=== PATIENT | female | born 1945 | race Caucasian/White ===

== ENCOUNTER 2018-07-15 19:28 | Emergency (ER) | payer MEDICARE, MEDICAID, SELFPAY ==
[2018-07-15] VITALS (7 sets, daily range): BP systolic 119–139; BP diastolic 71–82; PULSE 57–82; RESP 12–20; TEMP 36.4; O2SAT 94–99; BMI 28.8
--- NOTE | 2018-07-15 19:34 | ED_ITS ---
HPI - Dizziness General Chief Complaint: Dizziness Stated Complaint: Dizzy / Nausea Time Seen by Provider: 07/15/18 19:33 Source: patient and EMS Mode of arrival: EMS History of Present Illness HPI Narrative: patient is a 73-year-old female who presents with dizziness and nausea. She had a recent CVA at [facility] and now resided and 1 rehab. She said she got her night medications including glucosamine which immediately made her dizzy and nauseated. She has ringing in her ears which is not abnormal for her. She says it feels better when her eyes are closed but she is able to open them denies blurry vision or double vision. Related Data Previous Rx's Medication Instructions Recorded sulfamethoxazole-trimethoprim 1 tab PO BID 4 Days #8 tab 07/16/18 [Bactrim DS] Allergies Allergy/AdvReac Type Severity Reaction Status Date / Time codeine Allergy Hives Verified 07/15/18 20:24 Review of Systems Review of Systems All systems reviewed & are unremarkable except as noted in HPI and below Constitutional Denies chills, Denies fatigue and Denies fever(s) Eyes Denies blind spots, Denies blurry vision and Denies diplopia ENT Ears, Nose, Mouth, and Throat: Denies change in voice, Denies neck pain and Denies sore throat Cardiovascular Denies chest pain, Denies irregular heart rhythm, Denies lightheadedness, Denies palpitations, Denies dyspnea, Denies dyspnea on exertion and Denies orthopnea Respiratory Denies cough, Denies dyspnea, Denies dyspnea on exertion and Denies wheezing Gastrointestinal Gastrointestinal: Denies abdominal pain, Denies change in bowel habits, Denies diarrhea, Denies nausea and Denies vomiting Musculoskeletal Denies deformity and Denies neck pain Integumentary/Breasts Denies pruritus, Denies erythema, Denies rash and Denies wounds Neurologic Reports as per HPI Endocrine Denies fatigue and Denies palpitations Allergic/Immunologic Denies wheezing [facility] Social History Smoking Status: Never smoker Exam Initial Vital Signs Initial Vital Signs: Vital Signs Temperature 97.5 F L 07/15/18 19:37 Pulse Rate 71 07/15/18 19:37 Respiratory Rate 20 07/15/18 19:37 Blood Pressure 132/82 07/15/18 19:37 Pulse Oximetry 98 07/15/18 19:37 Const General: cooperative and acute distress ( Closing eyes appears uncomfortable) Nutritional Appearance: average body habitus Orientation: alert, awake and oriented x3 HENMT Head: normal to inspection and normocephalic Face and sinus: normal facial exam Eyes General: appearance normal, both eyes and all related structures Neck Neck: normal visual inspection, full ROM and no meningeal signs Chest Chest: normal inspection of the chest Resp Effort & Inspection: normal respiratory effort, able to speak in complete sentences, no respiratory distress and no use of accessory muscles Auscultation: clear to auscultation bilaterally, no rales, no rhonchi and no wheezes Cardio Rate: regular rate Rhythm: regular rhythm Heart Sounds: S1 normal and S2 normal GI Inspection: non-distended Palpation: soft, no hepatosplenomegaly, No guarding, No pulsatile mass and No tender Auscultation: normal bowel sounds Skin General: no rashes or lesions noted, No jaundice and No petechiae Neuro General: alert, awake and oriented x3 Cranial Nerves: CN's II-XI intact bilaterally Cognition: normal cognition Speech: speech normal Motor: muscle tone abnormal ( 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) Course Orders Ordered: ED Orders 07/15/18 19:34 CT head/brain wo con Stat EKG-12 Lead Stat 07/15/18 20:00 Complete Blood Count AUTO DIFF Stat Comprehensive Metabolic Panel Stat Partial Thromboplastin Time Stat Prothrombin Time INR Stat Troponin & CK Cardiac Panel Stat 07/15/18 22:30 CT head/brain wo con Stat 07/16/18 01:29 Urine Culture Stat Urine Microscopic Stat Sodium Chloride (Normal Saline 0.9%) 1,000 mls @ 150 mls/hr IV CONT JACOB Last Admin: 07/15/18 20:15 Dose: 150 mls/hr Discontinued Medications Meclizine HCl (Antivert) 25 mg PO NOW ONE Stop: 07/15/18 19:35 Last Admin: 07/15/18 20:15 Dose: 25 mg Ondansetron HCl (Zofran) 4 mg IV NOW ONE Stop: 07/15/18 20:09 Last Admin: 07/15/18 20:15 Dose: 4 mg Trimethoprim/Sulfamethoxazole (Bactrim Ds Prepack) 1 bottle MISC SEEINSTR ONE Stop: 07/16/18 02:21 Last Admin: 07/16/18 02:48 Dose: 1 bottle Vital Signs - 8 hr 07/15/18 19:37 07/15/18 20:21 07/15/18 21:00 Temperature 97.5 F L Pulse Rate 71 82 67 Respiratory Rate 20 17 12 Blood Pressure 132/82 Blood Pressure [Left Arm] 139/71 130/77 Pulse Oximetry 98 94 99 07/15/18 22:00 07/15/18 22:51 07/15/18 23:00 Temperature Pulse Rate 67 64 63 Respiratory Rate 16 12 12 Blood Pressure Blood Pressure [Left Arm] 122/78 122/78 Pulse Oximetry 98 97 98 07/15/18 23:58 07/16/18 01:00 Temperature Pulse Rate 57 L 63 Respiratory Rate 13 16 Blood Pressure Blood Pressure [Left Arm] 119/73 133/71 Pulse Oximetry 99 98 MDM - Dizziness Medical Records Attestation: I reviewed the patient's medical records. Lab Data Attestation: I reviewed the patient's lab results. Result diagrams: 07/15/18 20:00 07/15/18 20:00 Lab Results 07/15/18 07/15/18 07/15/18 Range/Units 20:00 20:00 20:00 WBC 7.1 (4.5-11.0) X10^3/uL RBC 4.68 (4.0-5.2) X10^6/uL Hgb 14.8 (12.0-16.0) g/dL Hct 43.0 (36-46) % MCV 92.0 (80-100) fL MCH 31.6 (26-34) PG MCHC 34.3 (30-36) % RDW 13.4 (11.6-14.8) % Plt Count 198 (150-400) X10^3/uL Neut % (Auto) 65.6 (50-75) % Lymph % (Auto) 24.6 L (25-40) % [place] % (Auto) 7.6 (3-14) % Eos % (Auto) 1.6 L (2-4) % Baso % (Auto) 0.6 (0-2) % Neut # (Auto) 4600 (4477-3300) /uL PT 10.6 (10.1-12.7) SECONDS INR 1.0 (0.9-1.3) APTT 30 (26.4-36.2) SECONDS Sodium 145 (137-145) mmol/L Potassium 3.9 (3.4-5.1) mmol/L Chloride 106 (98-107) mmol/L Carbon Dioxide 27 (22-32) mmol/L BUN 19 H (7-17) mg/dL Creatinine 0.80 (0.52-1.04) mg/dL Estimated GFR > 60.0 (>60) mL/min BUN/Creatinine Ratio 23.8 H (6-22) Glucose 130 H (80-110) mg/dL Calcium 9.6 (8.4-10.2) mg/dL Total Bilirubin 0.4 (0.2-1.3) mg/dL AST 38 H (14-36) IU/L ALT 52 (9-52) IU/L Alkaline Phosphatase 100 (38-126) U/L Total Creatine Kinase 49 (30-135) U/L CK-MB (CK-2) TNP CK-MB (CK-2) Rel Index TNP Troponin I < 0.012 (0.01-0.034) ng/mL Total Protein 7.1 (6.3-8.2) g/dL Albumin 4.2 (3.5-5.0) g/dL Globulin 2.9 (1.7-4.1) g/dL Albumin/Globulin Ratio 1.4 (1.0-2.8) Urine RBC (0-5/HPF) Urine WBC (0-5/HPF) Ur Squamous Epith Cells Ur Renal Epithelial Cell Urine Bacteria (None) Ur Culture Indicated? Micro UA Comment 07/16/18 Range/Units 01:29 WBC (4.5-11.0) X10^3/uL RBC (4.0-5.2) X10^6/uL Hgb (12.0-16.0) g/dL Hct (36-46) % MCV (80-100) fL MCH (26-34) PG MCHC (30-36) % RDW (11.6-14.8) % Plt Count (150-400) X10^3/uL Neut % (Auto) (50-75) % Lymph % (Auto) (25-40) % [place] % (Auto) (3-14) % Eos % (Auto) (2-4) % Baso % (Auto) (0-2) % Neut # (Auto) (0225-1491) /uL PT (10.1-12.7) SECONDS INR (0.9-1.3) APTT (26.4-36.2) SECONDS Sodium (137-145) mmol/L Potassium (3.4-5.1) mmol/L Chloride (98-107) mmol/L Carbon Dioxide (22-32) mmol/L BUN (7-17) mg/dL Creatinine (0.52-1.04) mg/dL Estimated GFR (>60) mL/min BUN/Creatinine Ratio (6-22) Glucose (80-110) mg/dL Calcium (8.4-10.2) mg/dL Total Bilirubin (0.2-1.3) mg/dL AST (14-36) IU/L ALT (9-52) IU/L Alkaline Phosphatase (38-126) U/L Total Creatine Kinase (30-135) U/L CK-MB (CK-2) CK-MB (CK-2) Rel Index Troponin I (0.01-0.034) ng/mL Total Protein (6.3-8.2) g/dL Albumin (3.5-5.0) g/dL Globulin (1.7-4.1) g/dL Albumin/Globulin Ratio (1.0-2.8) Urine RBC 0-1/hpf (0-5/HPF) Urine WBC 1-5/hpf (0-5/HPF) Ur Squamous Epith Cells 1-5 /hpf Ur Renal Epithelial Cell 0-1/hpf Urine Bacteria Many (>30) H (None) Ur Culture Indicated? Specimen cultured Micro UA Comment * Point of Care Testing Glucose POC 113 Urine Dip Bedside Urine Glucose Negative Bedside Urine Bilirubin - Negative Bedside Urine Ketone - Negative Urine Specific [place] 1.030 Bedside Urine Occult Blood +/- Bedside Urine pH 6.0 Bedside Urine Protein - Negative Bedside Urine Urobilinogen - Negative Bedside Urine Nitrite + Positive Bedside Urine Leukocytes + [address] scan - head: Radiologist's impression: PROCEDURE: CT HEAD/BRAIN WO CON INDICATIONS: dizzy recent cva TECHNIQUE: Noncontrast 4.5 mm thick angled axial sections acquired from the foramen magnum to the vertex, with coronal and sagittal reformats. For radiation dose reduction, the following was used: automated exposure control, adjustment of mA and/or kV according to patient size. COMPARISON: None. FINDINGS: Image quality: Excellent. CSF spaces: Basal cisterns are patent. No extra-axial fluid collections. The ventricles are symmetric in size and shape. Brain: There is an ill-defined area of relative hyperintensity identified within the white matter adjacent to the left frontal horn on series 2 image 17. There is cerebral volume loss for age, with resultant ventricular and sulcal prominence. There are periventricular and deep white matter chronic small vessel ischemic changes. There is intracranial internal carotid artery atherosclerosis. Areas of old lacunar ischemia are noted within the basal ganglia bilaterally as well as a centrum semi-ovale bilaterally. Skull and face: Calvarium and visualized facial bones appear intact, without suspicious lesions. Sinuses: Visualized sinuses and mastoids are clear. IMPRESSION: 1. Ill-defined hypointensity within the cohen radiata as above. While this could could represent volume averaging of surrounding hypoattenuated white matter with a small focus of isointense parenchyma, 6 mm focus of hemorrhage cannot be definitively excluded. Recommend correlation with patient's symptoms and short interval imaging followup in 6 hours to document stability. 2. Moderate atrophy and chronic microvascular ischemic changes. Dictated by: Kylah Mayo M.D. 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 This may represent focal calcification or cavernosa angioma for example. There is no surrounding edema. Chronic ischemic changes. Age related volume loss. No mass. Adjacent to left caudate body in the coronal radii and white matter is somewhat around hyperdensity with small central hypo dense component measuring approximately 5.5 mm size coronal image number 40 unchanged as compared to patient's previous examination. No acute infarct. deep white matter changes. Old bilateral basal ganglia lacunar infarcts. ECG Data Attestation: I personally reviewed and interpreted this ECG as follows: Prior ECG tracings: not available for review Interpretation: Sinus rhythm left bundle branch block, no acute ST changes MDM Narrative Medical decision making narrative: Records were requested from [facility] of when patient arrived however we did not actually receive them and till 11:18 p.m. according to discharge summary she has known right-sided weakness and MRI MRA new left basal ganglial a lacunar infarct but no actual report. she had a full workup, thought to need long-term rehab she was released 05/29/2018 to [facility] where she has been since. Patient's symptoms resolved rather quickly after Zofran and meclizine. She seems to have stable deficits of right-sided weakness otherwise no new symptoms. She is able to sit and open her eyes appears much more comfortable. Repeat head CT shows no acute bleeding and stable findings from the for CT, and patient's symptoms have clinically resolved and she is back to baseline. Patient's urine does have nitrates leukocytes and bacteria in her urine. Will treat for UTI she does not appear septic. However this may be contributing to her dizziness. Discharge Plan Departure Patient Disposition: Home Clinical Impression: Benign paroxysmal positional vertigo Instructions: DI for Vertigo Activity Restrictions/Additional Instructions: *You have been diagnosed with vertigo, UTI *What to do: Symptoms may be related to your recent stroke. He did have 2 head CTs in the emergency department both appear chronic and stable. *Continue to take medications as directed Bactrim 1 tablet twice a day for 5 days total *Follow up with your primary care provider in 2-3 days *Return to ER if you should have persistent dizziness, weakness facial drooping or any new, worsening or concerning symptoms Prescriptions: New sulfamethoxazole-trimethoprim [Bactrim DS] 800-160 mg tablet 1 tab PO BID 4 Days Qty: 8 RF: 0 Referrals: Gayatri Hernandez MD [Physician] -
[2018-07-15 20:12] LABS: Add Manual Diff / Slide Review NO; Basophils Percent Auto 0.6 % (0-2); Eosinophils Percent Auto 1.6 % (2-4); Hemoglobin 14.8 g/dL (12.0-16.0); Lymphocytes Percent Auto 24.6 % (25-40); Mean Corpuscular HGB Conc 34.3 % (30-36); Mean Corpuscular Hemoglobin 31.6 PG (26-34); Monocytes Percent Auto 7.6 % (3-14); Neutrophils Absolute Auto 4600 /uL (3000-5900); Neutrophils Percent Auto 65.6 % (50-75); Platelet Count 198 X10^3/uL (150-400); Red Blood Cell Count 4.68 X10^6/uL (4.0-5.2); Red Cell Distribution Width 13.4 % (11.6-14.8); White Blood Cell Count 7.1 X10^3/uL (4.5-11.0)
[2018-07-15] MEDS: SODIUM CHLORIDE 0.9% 1,000 ML 150 ML IV (20:15)
[2018-07-15] MEDS: ONDANSETRON 4 MG/2 ML INJ IV (20:15)
[2018-07-15] MEDS: MECLIZINE HCL 12.5 MG TABLET 25 MG PO (20:15)
[2018-07-15 20:19] LABS: Prothrombin Time 10.6 SECONDS (10.1-12.7)
[2018-07-15 20:22] LABS: PTT Partial Thromboplastin Tim 30 SECONDS (26.4-36.2)
[2018-07-15 20:23] LABS: Alanine Aminotransferase 52 IU/L (9-52); Albumin 4.2 g/dL (3.5-5.0); Albumin Globulin Ratio 1.4 (1.0-2.8); Alkaline Phosphatase 100 U/L (38-126); Aspartate Aminotransferase 38 IU/L (14-36); BUN Creatinine Ratio 23.8 (6-22); Bilirubin Total 0.4 mg/dL (0.2-1.3); Blood Urea Nitrogen 19 mg/dL (7-17); Calcium 9.6 mg/dL (8.4-10.2); Carbon Dioxide 27 mmol/L (22-32); Chloride 106 mmol/L (98-107); Creatine Kinase 49 U/L (30-135); Estimated Glomerular Filt Rate > 60.0 mL/min (>60); Globulin 2.9 g/dL (1.7-4.1); Glucose 130 mg/dL (80-110); HEMOLYSIS < 15 (0-50); Potassium 3.9 mmol/L (3.4-5.1); Sodium 145 mmol/L (137-145); Total Protein 7.1 g/dL (6.3-8.2)
[2018-07-15 20:38] LABS: Troponin I < 0.012 ng/mL (0.01-0.034)
--- NOTE | 2018-07-15 22:30 | DI.CT.S_ITS ---
PROCEDURE: CT HEAD/BRAIN WO CON INDICATIONS: repeat head ct hypodensity in cohen radiata TECHNIQUE: Noncontrast 4.5 mm thick angled axial sections acquired from the foramen magnum to the vertex, with coronal and sagittal reformats. For radiation dose reduction, the following was used: automated exposure control, adjustment of mA and/or kV according to patient size. COMPARISON: [facility], CT, CT HEAD/BRAIN WO CON, 07/15/2018, 19:31. [facility], CT, CT HEAD WITHOUT CONTRAST, 05/02/2018, 13:16. [facility], CT, CT BRAIN WO CON, 02/17/2016, 8:13. [facility], CT, BRAIN W/O CONTRAST, 10/07/2012, 15:09. FINDINGS: Image quality: Excellent. CSF spaces: Basal cisterns are patent. No extra-axial fluid collections. Ventricles are symmetric in size and shape. Brain: No midline shift. There is an ill-defined approximately 6 mm area of relative hyperintensity within the white matter adjacent to the left frontal horn on axial image 15 of series 2. This area of hyperintensity is stable when compared with prior CT of the head performed earlier on the same evening of 07/15/18 at 1931 hrs. There is mild diffuse cerebral volume loss for age with resultant ventricular and sulcal prominence. There are scattered periventricular and deep white matter areas of hypoattenuation, consistent with chronic small vessel ischemic changes. Intracranial vascular calcifications are noted, including the internal carotid arteries. Old lacunar infarcts are noted within the bilateral basal ganglia and centrum semiovale. Bilateral basal ganglia calcifications are also noted. Skull and face: Calvarium and visualized facial bones are intact, without suspicious lesions. Sinuses: Visualized sinuses and mastoids are clear. IMPRESSION: #1. Previously identified ill-defined approximately 6 mm area of hyperintensity within the left cohen radiata is stable in size when compared with the CT of the head performed on 07/15/18 at 1931 hrs. (approximately 4 hours prior to the current exam). This may represent a small focus of hemorrhage, volume averaging artifact with adjacent hyperattenuating white matter, or a vascular abnormality. Consider followup head CT if there is continued clinical concern. #2. Moderate atrophic and chronic microvascular ischemic changes. This report is concordant with the overnight film processing shift supervisor radiology report of Dr. Felipe Shafer. Dictated by: Skip Jane M.D. on 07/16/2018 at 8:01 Approved by: Skip Jane M.D. on 07/16/2018 at 8:17
[2018-07-16 01:00] VITALS: BP 133/71; PULSE 63; RESP 16; O2SAT 98
--- NOTE | 2018-07-16 01:24 | PC.NURSE ---
I was called to CT to assist pt and tech to transfer pt back to stretcher as she was having too much pain in her leg to transfer herself. Pt c/o severe cramps to left leg.
[2018-07-16 01:57] LABS: Bacteria Urine Many (>30); RBC Urine 0-1/HPF (0-5/HPF); Renal Epithelial Cells Urine 0-1/HPF; Squamous Epithelial Cell Urine 1-5 /HPF; WBC Urine 1-5/HPF (0-5/HPF)
[2018-07-16 01:58] LABS: Culture Indicated Urine Specimen Cultured
[2018-07-16] MEDS: TRIMETH/SULFA 160/800 PREPACK 1 BOTTLE MISC (02:48)
[2018-07-16 03:28] VITALS: BP 118/68; PULSE 68; RESP 16; TEMP 36.4; O2SAT 97
== END 2018-07-16 03:30 | disposition home or self-care (01) ==
PROVIDERS: Emergency Provider Emergency Medicine
DX: H81.10 Benign paroxysmal vertigo, unspecified ear (principal)
CPT/HCPCS: 70450; 80053; 81003; 81015; 82550; 82962; 84484; 85025; 85610; 85730; 87077; 87086; 87186; 93005; 96361; 96374; 99284; 99285; J2405

== ENCOUNTER 2018-09-13 16:59 | Emergency (ER) | payer MEDICARE, MEDICAID, SELFPAY ==
--- NOTE | 2018-09-13 17:04 | DI.RAD.S_ITS ---
PROCEDURE: XR CHEST 1V INDICATIONS: chest pain TECHNIQUE: One view of the chest was acquired. COMPARISON: [facility], , CHEST 1VW (PORTABLE), 10/07/2012, 15:04. FINDINGS: Surgical changes and devices: None. Lungs and pleura: There is mild, diffuse interstitial prominence. No focal airspace opacities. No pleural effusion or pneumothorax. Mediastinum: Mediastinal contours appear normal. Heart size is enlarged, as before. Bones and chest wall: No suspicious bony lesions. Overlying soft tissues appear unremarkable. IMPRESSION: Interstitial prominence suggesting pulmonary edema in the setting of cardiomegaly. Dictated by: Gloria Rivas M.D. on 09/13/2018 at 17:17 Approved by: Gloria Rivas M.D. on 09/13/2018 at 17:18
[2018-09-13 17:10] VITALS: BP 131/72; PULSE 77; RESP 19; O2SAT 95
[2018-09-13 17:19] LABS: Add Manual Diff / Slide Review NO; Basophils Percent Auto 0.5 % (0-2); Eosinophils Percent Auto 1.9 % (2-4); Hemoglobin 14.7 g/dL (12.0-16.0); Lymphocytes Percent Auto 26.9 % (25-40); Mean Corpuscular HGB Conc 33.4 % (30-36); Mean Corpuscular Hemoglobin 30.4 PG (26-34); Monocytes Percent Auto 9.7 % (3-14); Neutrophils Absolute Auto 4300 /uL (1500-7000); Platelet Count 174 X10^3/uL (150-400); Red Blood Cell Count 4.84 X10^6/uL (4.0-5.2)
[2018-09-13 17:25] LABS: Alanine Aminotransferase 34 IU/L (9-52); Albumin 4.2 g/dL (3.5-5.0); Albumin Globulin Ratio 1.4 (1.0-2.8); Alkaline Phosphatase 80 U/L (38-126); Aspartate Aminotransferase 31 IU/L (14-36); BUN Creatinine Ratio 26.3 (6-22); Bilirubin Total 0.4 mg/dL (0.2-1.3); Blood Urea Nitrogen 21 mg/dL (7-17); Calcium 9.3 mg/dL (8.4-10.2); Carbon Dioxide 26 mmol/L (22-32); Chloride 107 mmol/L (98-107); Estimated Glomerular Filt Rate > 60.0 mL/min (>60); Globulin 2.9 g/dL (1.7-4.1); Glucose 110 mg/dL (80-110); HEMOLYSIS 22 (0-50); Potassium 3.3 mmol/L (3.4-5.1); Sodium 143 mmol/L (137-145); Total Protein 7.1 g/dL (6.3-8.2)
[2018-09-13 17:29] LABS: INR 0.9 (0.9-1.3)
[2018-09-13 17:32] LABS: PTT Partial Thromboplastin Tim 29 SECONDS (26.4-36.2)
[2018-09-13 17:37] LABS: Troponin I < 0.012 ng/mL (0.01-0.034)
[2018-09-13] MEDS: ASPIRIN 81 MG TAB 324 MG PO (17:40)
--- NOTE | 2018-09-13 17:50 | ED.CHESTPAIN ---
HPI - Chest Pain <REFUGIO Moreau - Last Filed: 09/13/18 22:12> General Chief Complaint: Chest Pain Stated Complaint: Chest pain Time Seen by Provider: 09/13/18 17:17 Source: patient Mode of arrival: ambulatory Limitations: no limitations History of Present Illness HPI narrative: 73-year-old female with history of CVA and is nonsmoker here for complaint of left-sided chest pain over the past couple of days. She reports increased pain with palpation and touch to the left chest wall. She denies any nausea vomiting. No shortness of breath. She also reports increased pain to that area with motion of her right upper extremity. She denies any trauma to the area. She denies any diaphoresis. She states that her pain was relieved by Tylenol. She denies any other current concerns or complaints at this time Related Data Home Medications Medication Instructions Recorded Confirmed Advil 1 tab PO QSHIFT 09/13/18 09/13/18 Lactobacillus acidophilus 1 cap PO DAILY 09/13/18 09/13/18 [Acidophilus] acetaminophen 650 mg PO Q4H PRN 09/13/18 09/13/18 alum-mag hydroxide-simeth [Maalox 30 ml PO Q4H PRN 09/13/18 09/13/18 Advanced] amlodipine 10 mg PO DAILY 09/13/18 09/13/18 aspirin 81 mg PO DAILY 09/13/18 09/13/18 atorvastatin 40 mg PO BEDTIME 09/13/18 09/13/18 calcium carbonate [Tums] 1 - 2 tab PO DAILY PRN 09/13/18 09/13/18 cholecalciferol (vitamin D3) 2,000 unit PO DAILY 09/13/18 09/13/18 [Vitamin D3] clopidogrel 75 mg PO BEDTIME 09/13/18 09/13/18 famotidine 20 mg PO BID 09/13/18 09/13/18 glucosamine monte 2KCl-chondroit 1 cap PO DAILY 09/13/18 09/13/18 [Glucosamine Sulf-Chondroitin] ibuprofen 600 mg PO Q4H PRN 09/13/18 09/13/18 loperamide [Imodium A-D] 2 mg PO BID PRN 09/13/18 09/13/18 magnesium oxide 1 tab PO DAILY PRN 09/13/18 09/13/18 melatonin 3 mg PO BEDTIME 09/13/18 09/13/18 melatonin 3 mg PO BEDTIME PRN 09/13/18 09/13/18 multivitamin with minerals 1 tab PO DAILY 09/13/18 09/13/18 oxybutynin chloride 2.5 mg PO BEDTIME 09/13/18 09/13/18 polyethylene glycol 3350 [Miralax] 17 g PO PRN PRN 09/13/18 09/13/18 sennosides-docusate sodium [Senna 1 tab PO DAILY PRN 09/13/18 09/13/18 with Docusate Sodium] Allergies Allergy/AdvReac Type Severity Reaction Status Date / Time codeine Allergy Hives Verified 07/15/18 20:24 Review of Systems <REFUGIO Moreau - Last Filed: 09/13/18 22:12> Constitutional Denies chills, Denies fatigue, Denies fever(s), Denies lethargy and Denies weakness Eyes Denies change in vision, Denies eye discharge, Denies irritation and Denies loss of vision ENT Ears, Nose, Mouth, and Throat: Denies change in voice, Denies neck pain and Denies sore throat Cardiovascular Reports chest pain, Denies dyspnea and Denies dyspnea on exertion Respiratory Denies cough, Denies dyspnea, Denies dyspnea on exertion and Denies wheezing Gastrointestinal Gastrointestinal: Denies abdominal pain, Denies change in bowel habits, Denies diarrhea, Denies nausea and Denies vomiting Genitourinary Denies hematuria, Denies flank pain, Denies urinary incontinence and Denies urinary urgency Musculoskeletal Denies neck pain Integumentary/Breasts Denies pruritus, Denies erythema, Denies rash and Denies wounds Neurologic Denies confusion, Denies loss of vision and Denies weakness Psychiatric Denies anxiety, Denies confusion, Denies depression, Denies homicidal ideation and Denies suicidal ideation Endocrine Denies fatigue and Denies flushing Hematologic/Lymphatic Denies easy bruising Allergic/Immunologic Denies wheezing Exam <REFUGIO Moreau - Last Filed: 09/13/18 22:12> Initial Vital Signs Initial Vital Signs: Vital Signs Pulse Rate 77 09/13/18 17:10 Respiratory Rate 19 09/13/18 17:10 Blood Pressure 131/72 09/13/18 17:10 Pulse Oximetry 95 09/13/18 17:10 Const General: cooperative and well developed Nutritional Appearance: well nourished Orientation: alert, awake, oriented x3 and not confused HENMT Mouth: oral mucosae normal and moist mucous membranes Eyes Conjunctivae: conjunctivae normal Sclera: sclerae normal Pupils: PERRL EOM: EOM intact bilaterally Chest Chest: tenderness Other: Tenderness on palpation to the left sternal margin. No signs of trauma. No ecchymosis. No deformity Resp Effort & Inspection: normal respiratory effort, able to speak in complete sentences, no respiratory distress and no use of accessory muscles Auscultation: clear to auscultation bilaterally, no rales, no rhonchi and no wheezes Cardio Rate: regular rate Rhythm: regular rhythm Heart Sounds: no click, no gallops, no murmurs and no rubs GI Inspection: non-distended Palpation: soft, no hepatosplenomegaly, No guarding, No pulsatile mass and No tender Auscultation: normal bowel sounds Skin General: no rashes or lesions noted, No jaundice and No petechiae Neuro General: alert, oriented x3, gait normal and no focal motor deficits Speech: speech normal <Namita Royal MD - Last Filed: 09/13/18 23:16> Initial Vital Signs Initial Vital Signs: Vital Signs Pulse Rate 77 09/13/18 17:10 Respiratory Rate 19 09/13/18 17:10 Blood Pressure 131/72 09/13/18 17:10 Pulse Oximetry 95 09/13/18 17:10 Course <REFUGIO Moreau - Last Filed: 09/13/18 22:12> Orders Ordered: ED Orders 09/13/18 17:00 BNP [B Type Natriuretic Peptide] Stat CBC [Complete Blood Count AUTO DIFF] Stat CMP [Comprehensive Metabolic Panel] Stat Troponin I Stat 09/13/18 17:04 Chest [XR chest 1V] Stat EKG-12 Lead Stat Discontinued Medications Aspirin (Aspirin Chew) 324 mg PO NOW ONE Stop: 09/13/18 17:22 Last Admin: 09/13/18 17:40 Dose: 324 mg Vital Signs - 8 hr 09/13/18 17:10 09/13/18 18:00 09/13/18 19:05 Pulse Rate 77 68 68 Respiratory Rate 19 18 16 Blood Pressure Blood Pressure [Left Arm] 131/72 139/63 132/61 Pulse Oximetry 95 95 95 09/13/18 19:58 Pulse Rate 66 Respiratory Rate 18 Blood Pressure 130/60 Blood Pressure [Left Arm] Pulse Oximetry 98 <Namita Royal MD - Last Filed: 09/13/18 23:16> Orders Ordered: ED Orders 09/13/18 17:00 BNP [B Type Natriuretic Peptide] Stat CBC [Complete Blood Count AUTO DIFF] Stat CMP [Comprehensive Metabolic Panel] Stat Troponin I Stat 09/13/18 17:04 Chest [XR chest 1V] Stat EKG-12 Lead Stat Discontinued Medications Aspirin (Aspirin Chew) 324 mg PO NOW ONE Stop: 09/13/18 17:22 Last Admin: 09/13/18 17:40 Dose: 324 mg Vital Signs - 8 hr 09/13/18 17:10 09/13/18 18:00 09/13/18 19:05 Pulse Rate 77 68 68 Respiratory Rate 19 18 16 Blood Pressure Blood Pressure [Left Arm] 131/72 139/63 132/61 Pulse Oximetry 95 95 95 09/13/18 19:58 Pulse Rate 66 Respiratory Rate 18 Blood Pressure 130/60 Blood Pressure [Left Arm] Pulse Oximetry 98 MDM - Chest Pain <REFUGIO Moreau - Last Filed: 09/13/18 22:12> Lab Data Result diagrams: 09/13/18 17:00 09/13/18 17:00 Lab Results 09/13/18 09/13/18 09/13/18 Range/Units 17:00 17:00 17:00 WBC 7.0 (4.5-11.0) X10^3/uL RBC 4.84 (4.0-5.2) X10^6/uL Hgb 14.7 (12.0-16.0) g/dL Hct 44.0 (36-46) % MCV 91.0 (80-100) fL MCH 30.4 (26-34) PG MCHC 33.4 (30-36) % RDW 13.0 (11.6-14.8) % Plt Count 174 (150-400) X10^3/uL Neut % (Auto) 61.0 (50-75) % Lymph % (Auto) 26.9 (25-40) % Kidder % (Auto) 9.7 (3-14) % Eos % (Auto) 1.9 L (2-4) % Baso % (Auto) 0.5 (0-2) % Neut # (Auto) 4300 (3998-4712) /uL PT (10.1-12.7) SECONDS INR (0.9-1.3) APTT (26.4-36.2) SECONDS Sodium 143 (137-145) mmol/L Potassium 3.3 L (3.4-5.1) mmol/L Chloride 107 (98-107) mmol/L Carbon Dioxide 26 (22-32) mmol/L BUN 21 H (7-17) mg/dL Creatinine 0.80 (0.52-1.04) mg/dL Estimated GFR > 60.0 (>60) mL/min BUN/Creatinine Ratio 26.3 H (6-22) Glucose 110 (80-110) mg/dL Calcium 9.3 (8.4-10.2) mg/dL Total Bilirubin 0.4 (0.2-1.3) mg/dL AST 31 (14-36) IU/L ALT 34 (9-52) IU/L Alkaline Phosphatase 80 (38-126) U/L Troponin I < 0.012 (0.01-0.034) ng/mL B-Natriuretic Peptide < 100 (<100) Total Protein 7.1 (6.3-8.2) g/dL Albumin 4.2 (3.5-5.0) g/dL Globulin 2.9 (1.7-4.1) g/dL Albumin/Globulin Ratio 1.4 (1.0-2.8) 09/13/18 Range/Units Unknown WBC (4.5-11.0) X10^3/uL RBC (4.0-5.2) X10^6/uL Hgb (12.0-16.0) g/dL Hct (36-46) % MCV (80-100) fL MCH (26-34) PG MCHC (30-36) % RDW (11.6-14.8) % Plt Count (150-400) X10^3/uL Neut % (Auto) (50-75) % Lymph % (Auto) (25-40) % Kidder % (Auto) (3-14) % Eos % (Auto) (2-4) % Baso % (Auto) (0-2) % Neut # (Auto) (5128-0000) /uL PT 10.0 L (10.1-12.7) SECONDS INR 0.9 (0.9-1.3) APTT 29 (26.4-36.2) SECONDS Sodium (137-145) mmol/L Potassium (3.4-5.1) mmol/L Chloride (98-107) mmol/L Carbon Dioxide (22-32) mmol/L BUN (7-17) mg/dL Creatinine (0.52-1.04) mg/dL Estimated GFR (>60) mL/min BUN/Creatinine Ratio (6-22) Glucose (80-110) mg/dL Calcium (8.4-10.2) mg/dL Total Bilirubin (0.2-1.3) mg/dL AST (14-36) IU/L ALT (9-52) IU/L Alkaline Phosphatase (38-126) U/L Troponin I (0.01-0.034) ng/mL B-Natriuretic Peptide (<100) Total Protein (6.3-8.2) g/dL Albumin (3.5-5.0) g/dL Globulin (1.7-4.1) g/dL Albumin/Globulin Ratio (1.0-2.8) Imaging Data Chest x-ray: Radiologist's impression: [place] [address] XRay Report Signed Patient: Veda Rivera MR#: [id number] : 1945 Acct:[id number] Age/Sex: 73 / F Date of Service: 09/13/18 Loc: ED Accession Number: [id number] Procedure: XR chest 1V Ordering Provider: Rolanda Bass D.O. PROCEDURE: XR CHEST 1V INDICATIONS: chest pain TECHNIQUE: One view of the chest was acquired. COMPARISON: [facility], , CHEST 1VW (PORTABLE), 10/07/2012, 15:04. FINDINGS: Surgical changes and devices: None. Lungs and pleura: There is mild, diffuse interstitial prominence. No focal airspace opacities. No pleural effusion or pneumothorax. Mediastinum: Mediastinal contours appear normal. Heart size is enlarged, as before. Bones and chest wall: No suspicious bony lesions. Overlying soft tissues appear unremarkable. IMPRESSION: Interstitial prominence suggesting pulmonary edema in the setting of cardiomegaly. Dictated by: Gloria Rivas M.D. on 09/13/2018 at 17:17 Approved by: Gloria Rivas M.D. on 09/13/2018 at 17:18 ECG Data Interpretation: EKG shows normal sinus rhythm with left bundle branch block. No ST elevation or depression. No ectopy with exception of a PVC. Ventricular rate of 82. Pr interval of 183. QRS duration 137. QTC of 457. MDM Narrative Medical decision making narrative: Chest x-ray was obtained and shows some findings suggesting pulmonary edema and cardiomegaly. BNP was normal. Cardiomegaly as was seen and prior chest x-rays. EKG shows sinus rhythm with no ST elevation or depression. Cardiac enzymes were obtained and were unremarkable. CBC and Chem panel were obtained were normal. Chest pain is reproducible with palpation signs symptoms presents as chest wall pain. Use [id number] Tylenol as needed for any discomfort. Follow up with primary care provider. Return emergency room for worsening symptoms. <Namita Royal MD - Last Filed: 09/13/18 23:16> Lab Data Lab Results 09/13/18 09/13/18 09/13/18 Range/Units 17:00 17:00 17:00 WBC 7.0 (4.5-11.0) X10^3/uL RBC 4.84 (4.0-5.2) X10^6/uL Hgb 14.7 (12.0-16.0) g/dL Hct 44.0 (36-46) % MCV 91.0 (80-100) fL MCH 30.4 (26-34) PG MCHC 33.4 (30-36) % RDW 13.0 (11.6-14.8) % Plt Count 174 (150-400) X10^3/uL Neut % (Auto) 61.0 (50-75) % Lymph % (Auto) 26.9 (25-40) % Kidder % (Auto) 9.7 (3-14) % Eos % (Auto) 1.9 L (2-4) % Baso % (Auto) 0.5 (0-2) % Neut # (Auto) 4300 (7322-5049) /uL PT (10.1-12.7) SECONDS INR (0.9-1.3) APTT (26.4-36.2) SECONDS Sodium 143 (137-145) mmol/L Potassium 3.3 L (3.4-5.1) mmol/L Chloride 107 (98-107) mmol/L Carbon Dioxide 26 (22-32) mmol/L BUN 21 H (7-17) mg/dL Creatinine 0.80 (0.52-1.04) mg/dL Estimated GFR > 60.0 (>60) mL/min BUN/Creatinine Ratio 26.3 H (6-22) Glucose 110 (80-110) mg/dL Calcium 9.3 (8.4-10.2) mg/dL Total Bilirubin 0.4 (0.2-1.3) mg/dL AST 31 (14-36) IU/L ALT 34 (9-52) IU/L Alkaline Phosphatase 80 (38-126) U/L Troponin I < 0.012 (0.01-0.034) ng/mL B-Natriuretic Peptide < 100 (<100) Total Protein 7.1 (6.3-8.2) g/dL Albumin 4.2 (3.5-5.0) g/dL Globulin 2.9 (1.7-4.1) g/dL Albumin/Globulin Ratio 1.4 (1.0-2.8) 09/13/18 Range/Units Unknown WBC (4.5-11.0) X10^3/uL RBC (4.0-5.2) X10^6/uL Hgb (12.0-16.0) g/dL Hct (36-46) % MCV (80-100) fL MCH (26-34) PG MCHC (30-36) % RDW (11.6-14.8) % Plt Count (150-400) X10^3/uL Neut % (Auto) (50-75) % Lymph % (Auto) (25-40) % Kidder % (Auto) (3-14) % Eos % (Auto) (2-4) % Baso % (Auto) (0-2) % Neut # (Auto) (9958-3192) /uL PT 10.0 L (10.1-12.7) SECONDS INR 0.9 (0.9-1.3) APTT 29 (26.4-36.2) SECONDS Sodium (137-145) mmol/L Potassium (3.4-5.1) mmol/L Chloride (98-107) mmol/L Carbon Dioxide (22-32) mmol/L BUN (7-17) mg/dL Creatinine (0.52-1.04) mg/dL Estimated GFR (>60) mL/min BUN/Creatinine Ratio (6-22) Glucose (80-110) mg/dL Calcium (8.4-10.2) mg/dL Total Bilirubin (0.2-1.3) mg/dL AST (14-36) IU/L ALT (9-52) IU/L Alkaline Phosphatase (38-126) U/L Troponin I (0.01-0.034) ng/mL B-Natriuretic Peptide (<100) Total Protein (6.3-8.2) g/dL Albumin (3.5-5.0) g/dL Globulin (1.7-4.1) g/dL Albumin/Globulin Ratio (1.0-2.8) Discharge Plan Departure Patient Disposition: Home Clinical Impression: Acute chest wall pain Discharge Date/Time: 09/13/18 19:58 Interventions: ED Discharge Assessment Last Done: 09/13/18 19:58 Instructions: DI for Atypical Chest Pain Activity Restrictions/Additional Instructions: EKG and laboratory results today were normal. Signs and symptoms presents as chest wall pain which is muscular pain. Use [id number] Tylenol as needed for any discomfort. Rest area. Follow up with her primary care provider in the next few days for re-evaluation. For any worsening symptoms return to the emergency room. Prescriptions: No Action Advil 1 tab PO QSHIFT RF: 0 atorvastatin 40 mg tablet 40 mg PO BEDTIME RF: 0 acetaminophen 325 mg Tablet 650 mg PO Q4H PRN (Reason: Fever Or Pain) RF: 0 melatonin 3 mg Tablet 3 mg PO BEDTIME RF: 0 clopidogrel 75 mg tablet 75 mg PO BEDTIME RF: 0 aspirin 81 mg Tablet,Delayed Release (Dr/Ec) 81 mg PO DAILY RF: 0 famotidine 20 mg tablet 20 mg PO BID RF: 0 amlodipine 10 mg tablet 10 mg PO DAILY RF: 0 multivitamin with minerals Tablet 1 tab PO DAILY RF: 0 Lactobacillus acidophilus [Acidophilus] Capsule 1 cap PO DAILY RF: 0 oxybutynin chloride 5 mg tablet 2.5 mg PO BEDTIME RF: 0 glucosamine monte 2KCl-chondroit [Glucosamine Sulf-Chondroitin] 500-400 mg Capsule 1 cap PO DAILY RF: 0 cholecalciferol (vitamin D3) [Vitamin D3] 2,000 unit Tablet 2,000 unit PO DAILY RF: 0 loperamide [Imodium A-D] 2 mg Capsule 2 mg PO BID PRN (Reason: Diarrhea) RF: 0 sennosides-docusate sodium [Senna with Docusate Sodium] 8.6-50 mg Tablet 1 tab PO DAILY PRN (Reason: Constipation) RF: 0 melatonin 3 mg Tablet 3 mg PO BEDTIME PRN (Reason: Sleep) RF: 0 calcium carbonate [Tums] 200 mg calcium (500 mg) Tablet,Chewable 1 - 2 tab PO DAILY PRN (Reason: Stomach Upset) RF: 0 alum-mag hydroxide-simeth [Maalox Advanced] 200-200-20 mg/5 mL Suspension 30 ml PO Q4H PRN (Reason: Stomach Upset) RF: 0 ibuprofen 600 mg Tablet 600 mg PO Q4H PRN (Reason: pain) RF: 0 polyethylene glycol 3350 [Miralax] 17 gram/dose Powder 17 g PO PRN PRN (Reason: Constipation) RF: 0 magnesium oxide 400 mg magnesium Tablet 1 tab PO DAILY PRN (Reason: Cramps) RF: 0 Referrals: Marie Nuno ARNP [Primary Care Provider] -
[2018-09-13 18:00] VITALS: BP 139/63; PULSE 68; RESP 18; O2SAT 95
[2018-09-13 18:03] LABS: B Type Natriuretic Peptide < 100 (<100)
[2018-09-13 19:05] VITALS: BP 132/61; PULSE 68; RESP 16; O2SAT 95
--- NOTE | 2018-09-13 19:18 | ED_ITS ---
HPI - Chest Pain <REFUGIO Moreau - Last Filed: 09/13/18 22:12> General Chief Complaint: Chest Pain Stated Complaint: Chest pain Time Seen by Provider: 09/13/18 17:17 Source: patient Mode of arrival: ambulatory Limitations: no limitations History of Present Illness HPI narrative: 73-year-old female with history of CVA and is nonsmoker here for complaint of left-sided chest pain over the past couple of days. She reports increased pain with palpation and touch to the left chest wall. She denies any nausea vomiting. No shortness of breath. She also reports increased pain to that area with motion of her right upper extremity. She denies any trauma to the area. She denies any diaphoresis. She states that her pain was relieved by Tylenol. She denies any other current concerns or complaints at this time Related Data Home Medications Medication Instructions Recorded Confirmed Advil 1 tab PO QSHIFT 09/13/18 09/13/18 Lactobacillus acidophilus 1 cap PO DAILY 09/13/18 09/13/18 [Acidophilus] acetaminophen 650 mg PO Q4H PRN 09/13/18 09/13/18 alum-mag hydroxide-simeth [Maalox 30 ml PO Q4H PRN 09/13/18 09/13/18 Advanced] amlodipine 10 mg PO DAILY 09/13/18 09/13/18 aspirin 81 mg PO DAILY 09/13/18 09/13/18 atorvastatin 40 mg PO BEDTIME 09/13/18 09/13/18 calcium carbonate [Tums] 1 - 2 tab PO DAILY PRN 09/13/18 09/13/18 cholecalciferol (vitamin D3) 2,000 unit PO DAILY 09/13/18 09/13/18 [Vitamin D3] clopidogrel 75 mg PO BEDTIME 09/13/18 09/13/18 famotidine 20 mg PO BID 09/13/18 09/13/18 glucosamine monte 2KCl-chondroit 1 cap PO DAILY 09/13/18 09/13/18 [Glucosamine Sulf-Chondroitin] ibuprofen 600 mg PO Q4H PRN 09/13/18 09/13/18 loperamide [Imodium A-D] 2 mg PO BID PRN 09/13/18 09/13/18 magnesium oxide 1 tab PO DAILY PRN 09/13/18 09/13/18 melatonin 3 mg PO BEDTIME 09/13/18 09/13/18 melatonin 3 mg PO BEDTIME PRN 09/13/18 09/13/18 multivitamin with minerals 1 tab PO DAILY 09/13/18 09/13/18 oxybutynin chloride 2.5 mg PO BEDTIME 09/13/18 09/13/18 polyethylene glycol 3350 [Miralax] 17 g PO PRN PRN 09/13/18 09/13/18 sennosides-docusate sodium [Senna 1 tab PO DAILY PRN 09/13/18 09/13/18 with Docusate Sodium] Allergies Allergy/AdvReac Type Severity Reaction Status Date / Time codeine Allergy Hives Verified 07/15/18 20:24 Review of Systems <REFUGIO Moreau - Last Filed: 09/13/18 22:12> Constitutional Denies chills, Denies fatigue, Denies fever(s), Denies lethargy and Denies weakness Eyes Denies change in vision, Denies eye discharge, Denies irritation and Denies loss of vision ENT Ears, Nose, Mouth, and Throat: Denies change in voice, Denies neck pain and Denies sore throat Cardiovascular Reports chest pain, Denies dyspnea and Denies dyspnea on exertion Respiratory Denies cough, Denies dyspnea, Denies dyspnea on exertion and Denies wheezing Gastrointestinal Gastrointestinal: Denies abdominal pain, Denies change in bowel habits, Denies diarrhea, Denies nausea and Denies vomiting Genitourinary Denies hematuria, Denies flank pain, Denies urinary incontinence and Denies urinary urgency Musculoskeletal Denies neck pain Integumentary/Breasts Denies pruritus, Denies erythema, Denies rash and Denies wounds Neurologic Denies confusion, Denies loss of vision and Denies weakness Psychiatric Denies anxiety, Denies confusion, Denies depression, Denies homicidal ideation and Denies suicidal ideation Endocrine Denies fatigue and Denies flushing Hematologic/Lymphatic Denies easy bruising Allergic/Immunologic Denies wheezing Exam <REFUGIO Moreau - Last Filed: 09/13/18 22:12> Initial Vital Signs Initial Vital Signs: Vital Signs Pulse Rate 77 09/13/18 17:10 Respiratory Rate 19 09/13/18 17:10 Blood Pressure 131/72 09/13/18 17:10 Pulse Oximetry 95 09/13/18 17:10 Const General: cooperative and well developed Nutritional Appearance: well nourished Orientation: alert, awake, oriented x3 and not confused HENMT Mouth: oral mucosae normal and moist mucous membranes Eyes Conjunctivae: conjunctivae normal Sclera: sclerae normal Pupils: PERRL EOM: EOM intact bilaterally Chest Chest: tenderness Other: Tenderness on palpation to the left sternal margin. No signs of trauma. No ecchymosis. No deformity Resp Effort & Inspection: normal respiratory effort, able to speak in complete sentences, no respiratory distress and no use of accessory muscles Auscultation: clear to auscultation bilaterally, no rales, no rhonchi and no wheezes Cardio Rate: regular rate Rhythm: regular rhythm Heart Sounds: no click, no gallops, no murmurs and no rubs GI Inspection: non-distended Palpation: soft, no hepatosplenomegaly, No guarding, No pulsatile mass and No tender Auscultation: normal bowel sounds Skin General: no rashes or lesions noted, No jaundice and No petechiae Neuro General: alert, oriented x3, gait normal and no focal motor deficits Speech: speech normal <Namita Royal MD - Last Filed: 09/13/18 23:16> Initial Vital Signs Initial Vital Signs: Vital Signs Pulse Rate 77 09/13/18 17:10 Respiratory Rate 19 09/13/18 17:10 Blood Pressure 131/72 09/13/18 17:10 Pulse Oximetry 95 09/13/18 17:10 Course <REFUGIO Moreau - Last Filed: 09/13/18 22:12> Orders Ordered: ED Orders 09/13/18 17:00 BNP [B Type Natriuretic Peptide] Stat CBC [Complete Blood Count AUTO DIFF] Stat CMP [Comprehensive Metabolic Panel] Stat Troponin I Stat 09/13/18 17:04 Chest [XR chest 1V] Stat EKG-12 Lead Stat Discontinued Medications Aspirin (Aspirin Chew) 324 mg PO NOW ONE Stop: 09/13/18 17:22 Last Admin: 09/13/18 17:40 Dose: 324 mg Vital Signs - 8 hr 09/13/18 17:10 09/13/18 18:00 09/13/18 19:05 Pulse Rate 77 68 68 Respiratory Rate 19 18 16 Blood Pressure Blood Pressure [Left Arm] 131/72 139/63 132/61 Pulse Oximetry 95 95 95 09/13/18 19:58 Pulse Rate 66 Respiratory Rate 18 Blood Pressure 130/60 Blood Pressure [Left Arm] Pulse Oximetry 98 <Namita Royal MD - Last Filed: 09/13/18 23:16> Orders Ordered: ED Orders 09/13/18 17:00 BNP [B Type Natriuretic Peptide] Stat CBC [Complete Blood Count AUTO DIFF] Stat CMP [Comprehensive Metabolic Panel] Stat Troponin I Stat 09/13/18 17:04 Chest [XR chest 1V] Stat EKG-12 Lead Stat Discontinued Medications Aspirin (Aspirin Chew) 324 mg PO NOW ONE Stop: 09/13/18 17:22 Last Admin: 09/13/18 17:40 Dose: 324 mg Vital Signs - 8 hr 09/13/18 17:10 09/13/18 18:00 09/13/18 19:05 Pulse Rate 77 68 68 Respiratory Rate 19 18 16 Blood Pressure Blood Pressure [Left Arm] 131/72 139/63 132/61 Pulse Oximetry 95 95 95 09/13/18 19:58 Pulse Rate 66 Respiratory Rate 18 Blood Pressure 130/60 Blood Pressure [Left Arm] Pulse Oximetry 98 MDM - Chest Pain <REFUGIO Moreau - Last Filed: 09/13/18 22:12> Lab Data Result diagrams: 09/13/18 17:00 09/13/18 17:00 Lab Results 09/13/18 09/13/18 09/13/18 Range/Units 17:00 17:00 17:00 WBC 7.0 (4.5-11.0) X10^3/uL RBC 4.84 (4.0-5.2) X10^6/uL Hgb 14.7 (12.0-16.0) g/dL Hct 44.0 (36-46) % MCV 91.0 (80-100) fL MCH 30.4 (26-34) PG MCHC 33.4 (30-36) % RDW 13.0 (11.6-14.8) % Plt Count 174 (150-400) X10^3/uL Neut % (Auto) 61.0 (50-75) % Lymph % (Auto) 26.9 (25-40) % [place]asta % (Auto) 9.7 (3-14) % Eos % (Auto) 1.9 L (2-4) % Baso % (Auto) 0.5 (0-2) % Neut # (Auto) 4300 (4806-7229) /uL PT (10.1-12.7) SECONDS INR (0.9-1.3) APTT (26.4-36.2) SECONDS Sodium 143 (137-145) mmol/L Potassium 3.3 L (3.4-5.1) mmol/L Chloride 107 (98-107) mmol/L Carbon Dioxide 26 (22-32) mmol/L BUN 21 H (7-17) mg/dL Creatinine 0.80 (0.52-1.04) mg/dL Estimated GFR > 60.0 (>60) mL/min BUN/Creatinine Ratio 26.3 H (6-22) Glucose 110 (80-110) mg/dL Calcium 9.3 (8.4-10.2) mg/dL Total Bilirubin 0.4 (0.2-1.3) mg/dL AST 31 (14-36) IU/L ALT 34 (9-52) IU/L Alkaline Phosphatase 80 (38-126) U/L Troponin I < 0.012 (0.01-0.034) ng/mL B-Natriuretic Peptide < 100 (<100) Total Protein 7.1 (6.3-8.2) g/dL Albumin 4.2 (3.5-5.0) g/dL Globulin 2.9 (1.7-4.1) g/dL Albumin/Globulin Ratio 1.4 (1.0-2.8) 09/13/18 Range/Units Unknown WBC (4.5-11.0) X10^3/uL RBC (4.0-5.2) X10^6/uL Hgb (12.0-16.0) g/dL Hct (36-46) % MCV (80-100) fL MCH (26-34) PG MCHC (30-36) % RDW (11.6-14.8) % Plt Count (150-400) X10^3/uL Neut % (Auto) (50-75) % Lymph % (Auto) (25-40) % Shasta % (Auto) (3-14) % Eos % (Auto) (2-4) % Baso % (Auto) (0-2) % Neut # (Auto) (7416-7869) /uL PT 10.0 L (10.1-12.7) SECONDS INR 0.9 (0.9-1.3) APTT 29 (26.4-36.2) SECONDS Sodium (137-145) mmol/L Potassium (3.4-5.1) mmol/L Chloride (98-107) mmol/L Carbon Dioxide (22-32) mmol/L BUN (7-17) mg/dL Creatinine (0.52-1.04) mg/dL Estimated GFR (>60) mL/min BUN/Creatinine Ratio (6-22) Glucose (80-110) mg/dL Calcium (8.4-10.2) mg/dL Total Bilirubin (0.2-1.3) mg/dL AST (14-36) IU/L ALT (9-52) IU/L Alkaline Phosphatase (38-126) U/L Troponin I (0.01-0.034) ng/mL B-Natriuretic Peptide (<100) Total Protein (6.3-8.2) g/dL Albumin (3.5-5.0) g/dL Globulin (1.7-4.1) g/dL Albumin/Globulin Ratio (1.0-2.8) Imaging Data Chest x-ray: Radiologist's impression: [place] [address] XRay Report Signed Patient: Veda Rivera MR#: [id number] : 1945 Acct:[id number] Age/Sex: 73 / F Date of Service: 09/13/18 Loc: ED Accession Number: [id number] Procedure: XR chest 1V Ordering Provider: Rolanda Bass D.O. PROCEDURE: XR CHEST 1V INDICATIONS: chest pain TECHNIQUE: One view of the chest was acquired. COMPARISON: [facility], , CHEST 1VW (PORTABLE), 10/07/2012, 15:04. FINDINGS: Surgical changes and devices: None. Lungs and pleura: There is mild, diffuse interstitial prominence. No focal airspace opacities. No pleural effusion or pneumothorax. Mediastinum: Mediastinal contours appear normal. Heart size is enlarged, as before. Bones and chest wall: No suspicious bony lesions. Overlying soft tissues appear unremarkable. IMPRESSION: Interstitial prominence suggesting pulmonary edema in the setting of cardiomegaly. Dictated by: Gloria Rivas M.D. on 09/13/2018 at 17:17 Approved by: Gloria Rivas M.D. on 09/13/2018 at 17:18 ECG Data Interpretation: EKG shows normal sinus rhythm with left bundle branch block. No ST elevation or depression. No ectopy with exception of a PVC. Ventricular rate of 82. Pr interval of 183. QRS duration 137. QTC of 457. MDM Narrative Medical decision making narrative: Chest x-ray was obtained and shows some findings suggesting pulmonary edema and cardiomegaly. BNP was normal. Cardiomegaly as was seen and prior chest x-rays. EKG shows sinus rhythm with no ST elevation or depression. Cardiac enzymes were obtained and were unremarkable. CBC and Chem panel were obtained were normal. Chest pain is reproducible with palpation signs symptoms presents as chest wall pain. Use [id number] Tylenol as needed for any discomfort. Follow up with primary care provider. Return emergency room for worsening symptoms. <Namita Royal MD - Last Filed: 09/13/18 23:16> Lab Data Lab Results 09/13/18 09/13/18 09/13/18 Range/Units 17:00 17:00 17:00 WBC 7.0 (4.5-11.0) X10^3/uL RBC 4.84 (4.0-5.2) X10^6/uL Hgb 14.7 (12.0-16.0) g/dL Hct 44.0 (36-46) % MCV 91.0 (80-100) fL MCH 30.4 (26-34) PG MCHC 33.4 (30-36) % RDW 13.0 (11.6-14.8) % Plt Count 174 (150-400) X10^3/uL Neut % (Auto) 61.0 (50-75) % Lymph % (Auto) 26.9 (25-40) % Shasta % (Auto) 9.7 (3-14) % Eos % (Auto) 1.9 L (2-4) % Baso % (Auto) 0.5 (0-2) % Neut # (Auto) 4300 (9048-9009) /uL PT (10.1-12.7) SECONDS INR (0.9-1.3) APTT (26.4-36.2) SECONDS Sodium 143 (137-145) mmol/L Potassium 3.3 L (3.4-5.1) mmol/L Chloride 107 (98-107) mmol/L Carbon Dioxide 26 (22-32) mmol/L BUN 21 H (7-17) mg/dL Creatinine 0.80 (0.52-1.04) mg/dL Estimated GFR > 60.0 (>60) mL/min BUN/Creatinine Ratio 26.3 H (6-22) Glucose 110 (80-110) mg/dL Calcium 9.3 (8.4-10.2) mg/dL Total Bilirubin 0.4 (0.2-1.3) mg/dL AST 31 (14-36) IU/L ALT 34 (9-52) IU/L Alkaline Phosphatase 80 (38-126) U/L Troponin I < 0.012 (0.01-0.034) ng/mL B-Natriuretic Peptide < 100 (<100) Total Protein 7.1 (6.3-8.2) g/dL Albumin 4.2 (3.5-5.0) g/dL Globulin 2.9 (1.7-4.1) g/dL Albumin/Globulin Ratio 1.4 (1.0-2.8) 09/13/18 Range/Units Unknown WBC (4.5-11.0) X10^3/uL RBC (4.0-5.2) X10^6/uL Hgb (12.0-16.0) g/dL Hct (36-46) % MCV (80-100) fL MCH (26-34) PG MCHC (30-36) % RDW (11.6-14.8) % Plt Count (150-400) X10^3/uL Neut % (Auto) (50-75) % Lymph % (Auto) (25-40) % [place]asta % (Auto) (3-14) % Eos % (Auto) (2-4) % Baso % (Auto) (0-2) % Neut # (Auto) (8445-5732) /uL PT 10.0 L (10.1-12.7) SECONDS INR 0.9 (0.9-1.3) APTT 29 (26.4-36.2) SECONDS Sodium (137-145) mmol/L Potassium (3.4-5.1) mmol/L Chloride (98-107) mmol/L Carbon Dioxide (22-32) mmol/L BUN (7-17) mg/dL Creatinine (0.52-1.04) mg/dL Estimated GFR (>60) mL/min BUN/Creatinine Ratio (6-22) Glucose (80-110) mg/dL Calcium (8.4-10.2) mg/dL Total Bilirubin (0.2-1.3) mg/dL AST (14-36) IU/L ALT (9-52) IU/L Alkaline Phosphatase (38-126) U/L Troponin I (0.01-0.034) ng/mL B-Natriuretic Peptide (<100) Total Protein (6.3-8.2) g/dL Albumin (3.5-5.0) g/dL Globulin (1.7-4.1) g/dL Albumin/Globulin Ratio (1.0-2.8) Discharge Plan Departure Patient Disposition: Home Clinical Impression: Acute chest wall pain Discharge Date/Time: 09/13/18 19:58 Interventions: ED Discharge Assessment Last Done: 09/13/18 19:58 Instructions: DI for Atypical Chest Pain Activity Restrictions/Additional Instructions: EKG and laboratory results today were normal. Signs and symptoms presents as chest wall pain which is muscular pain. Use [id number] Tylenol as needed for any discomfort. Rest area. Follow up with her primary care provider in the next few days for re-evaluation. For any worsening symptoms return to the emergency room. Prescriptions: No Action Advil 1 tab PO QSHIFT RF: 0 atorvastatin 40 mg tablet 40 mg PO BEDTIME RF: 0 acetaminophen 325 mg Tablet 650 mg PO Q4H PRN (Reason: Fever Or Pain) RF: 0 melatonin 3 mg Tablet 3 mg PO BEDTIME RF: 0 clopidogrel 75 mg tablet 75 mg PO BEDTIME RF: 0 aspirin 81 mg Tablet,Delayed Release (Dr/Ec) 81 mg PO DAILY RF: 0 famotidine 20 mg tablet 20 mg PO BID RF: 0 amlodipine 10 mg tablet 10 mg PO DAILY RF: 0 multivitamin with minerals Tablet 1 tab PO DAILY RF: 0 Lactobacillus acidophilus [Acidophilus] Capsule 1 cap PO DAILY RF: 0 oxybutynin chloride 5 mg tablet 2.5 mg PO BEDTIME RF: 0 glucosamine monte 2KCl-chondroit [Glucosamine Sulf-Chondroitin] 500-400 mg Capsule 1 cap PO DAILY RF: 0 cholecalciferol (vitamin D3) [Vitamin D3] 2,000 unit Tablet 2,000 unit PO DAILY RF: 0 loperamide [Imodium A-D] 2 mg Capsule 2 mg PO BID PRN (Reason: Diarrhea) RF: 0 sennosides-docusate sodium [Senna with Docusate Sodium] 8.6-50 mg Tablet 1 tab PO DAILY PRN (Reason: Constipation) RF: 0 melatonin 3 mg Tablet 3 mg PO BEDTIME PRN (Reason: Sleep) RF: 0 calcium carbonate [Tums] 200 mg calcium (500 mg) Tablet,Chewable 1 - 2 tab PO DAILY PRN (Reason: Stomach Upset) RF: 0 alum-mag hydroxide-simeth [Maalox Advanced] 200-200-20 mg/5 mL Suspension 30 ml PO Q4H PRN (Reason: Stomach Upset) RF: 0 ibuprofen 600 mg Tablet 600 mg PO Q4H PRN (Reason: pain) RF: 0 polyethylene glycol 3350 [Miralax] 17 gram/dose Powder 17 g PO PRN PRN (Reason: Constipation) RF: 0 magnesium oxide 400 mg magnesium Tablet 1 tab PO DAILY PRN (Reason: Cramps) RF: 0 Referrals: Marie Nuno ARNP [Primary Care Provider] -
[2018-09-13 19:58] VITALS: BP 130/60; PULSE 66; RESP 18; O2SAT 98
== END 2018-09-13 19:58 | disposition home or self-care (01) ==
PROVIDERS: Emergency Medicine; Emergency Provider Nurse Practitioner Family; Family Provider Nurse Practitioner; PCP Nurse Practitioner
DX: R07.89 Other chest pain (principal)
CPT/HCPCS: 71045; 80053; 83880; 84484; 85025; 85610; 85730; 93005; 99283; 99285